=== PATIENT | female | born 1950 | race Caucasian/White ===

== ENCOUNTER 2017-02-01 19:31 | Emergency (ER) | payer OTHER ==
[2017-02-01 20:30] VITALS: BP 145/101
--- NOTE | 2017-02-02 00:23 | EDM.PDOC ---
ED HPI GENERAL MEDICAL PROBLEM - General Chief Complaint: Lower Extremity Injury/Pain Stated Complaint: HAD KNEE REPLACEMENT AND HAS BAD PAIN AND DRAINAGE Time Seen by Provider: 02/01/17 20:13 Source of Information: Reports: Patient History Limitations: Reports: No Limitations - History of Present Illness INITIAL COMMENTS - FREE TEXT/NARRATIVE: History of present illness: [66-year-old female presenting with a history of having total left knee 1 week ago in [place]. She is presenting with her daughter with concerns of some erythema that is developed around the incision. She feels like the knee is got a little more swollen and is more tender as well. Daughter states she went to physical therapy on Monday and the daughter felt that they pushed her little bit hard and that perhaps some of the pain and swelling and discomfort she is having is due to that. Her daughter states that she does have a history of lymphedema and having trouble with cellulitis off and on for most of her life.] Review of systems: As per history of present illness and below otherwise all systems reviewed and negative. Past medical history: As per history of present illness and as reviewed below otherwise noncontributory. Surgical history: As per history of present illness and as reviewed below otherwise noncontributory. Social history: No reported history of drug or alcohol abuse. Family history: As per history of present illness and as reviewed below otherwise noncontributory. Physical exam: HEENT: Atraumatic, normocephalic, pupils reactive, negative for conjunctival pallor or scleral icterus, mucous membranes moist, throat clear, neck supple, nontender, trachea midline. Lungs: Clear to auscultation, breath sounds equal bilaterally, chest nontender. Heart: S1S2, regular, negative for clicks, rubs, or JVD. Abdomen: Soft, nondistended, nontender. Negative for masses or hepatosplenomegaly. Negative for costovertebral tenderness. Pelvis: Stable nontender. Genitourinary: Deferred. Rectal: Deferred. Extremities: Examination of the left knee does show that it is swollen but this is superimposed on her chronic lymphedema so some of the swelling it is just from the lymphedema but some of it is postsurgical. She does have some erythema about the incision superiorly is not dense there is no purulent discharge is warm to touch but not hot. She is able to lift that leg off the gurney and she is able to bend her knee to 90 and stop at that point due to pain. She is states that the pain is a bit more intense in doing this maneuver than it was a few days ago. Neuro: Awake, alert, oriented. Exam nonfocal. Diagnostics: [CBC complete metabolic panels CRP and sedimentation rate were done. Her white count is normal her hemoglobin is 10.7 I believe. Sedimentation rate is 32 and her CRP is slightly elevated.] Therapeutics: [] Impression: [Status post total knee on the left with localized cellulitis. I do not believe at this point that this is a deep infection.] Plan: [Or starting on Keflex 500 mg 4 times a day for 10 days. We are providing her with a copy of all her lab work and advising them to call Dr. Travis's office tomorrow and at least speak to his nurse and perhaps the lab work to be faxed to him for his review. She does have a follow-up appointment on the but perhaps they will want to see her sooner given the new concerned that has been raised here tonight. But once again I don't think at this point that this is a deep infection and that it is localized in that hopefully will respond to Keflex.] Definitive disposition and diagnosis as appropriate pending reevaluation and review of above. Left Knee Pain Score (Numeric/FACES): 7 - Related Data Allergies Allergy/AdvReac Type Severity Reaction Status Date / Time triamcinolone [From Kenalog] Allergy Rash Verified 02/01/17 20:52 Home Meds: Home Meds Acetaminophen/Caffeine [Excedrin Tension Headache] 2 tab PO BID PRN 07/06/14 [ History] Armodafinil [Nuvigil] 125 mg PO BID 07/06/14 [History] Calcium Carbonate [Calcium] 500 mg PO DAILY 07/06/14 [History] Cyanocobalamin (Vitamin B-12) [Vitamin B-12] 1 tab PO DAILY 07/06/14 [History] Furosemide [Lasix] 20 mg PO DAILY 07/06/14 [History] Lutein/Minerals/Vit A,C & E [Ocuvite] 1 tab PO DAILY 07/06/14 [History] Sertraline [Zoloft] 50 mg PO BEDTIME 07/06/14 [History] atoMOXetine HCl [Strattera] 60 mg PO DAILY 07/06/14 [History] Past Medical History HEENT History: Reports: Impaired Vision, Sinusitis Cardiovascular History: Reports: Hypertension Other Cardiovascular History: Lymph edema Respiratory History: Reports: Sleep Apnea Other Respiratory History: Recent pneumonia @ nodules l lung 3 and 4 ml Genitourinary History: Reports: Urinary Incontinence, Other (See Below) Other Genitourinary History: occ uti [employer] History: Reports: , Other (See Below) Other OB/BYN History: Partial hysterectomy Neurological History: Reports: TIA Psychiatric History: Reports: Depression Oncologic (Cancer) History: Reports: Basal Cell Carcinoma Dermatologic History: Reports: Other (See Below) Other Dermatologic History: dry skin - Infectious Disease History Infectious Disease History: Reports: Chicken Pox, Measles, Mumps, Rubella, Shingles - Past Surgical History Cardiovascular Surgical History: Reports: Varicose GI Surgical History: Reports: Bariatric Procedure, Cholecystectomy, Hernia Repair/Other Musculoskeletal Surgical History: Reports: Knee Replacement Social & Family History - Tobacco Use Smoking Status *Q: Never Smoker Second Hand Smoke Exposure: No - Caffeine Use Caffeine Use: Reports: Coffee, Soda - Alcohol Use Days Per Week of Alcohol Use: 0 - Recreational Drug Use Recreational Drug Use: No Review of Systems - Review of Systems Review Of Systems: ROS reveals no pertinent complaints other than HPI. ED EXAM, GENERAL - Physical Exam Exam: See Below Course - Vital Signs Last Recorded V/S: Last Vital Signs Temp 36.1 C 02/01/17 20:29 Pulse 78 02/01/17 20:29 Resp 18 02/01/17 20:29 BP 145/101 H 02/01/17 20:29 Pulse Ox 98 02/01/17 20:29 - Orders/Labs/Meds Labs: Laboratory Tests 02/01/17 02/01/17 Range/Units 22:40 22:40 WBC 6.5 (4.5-11.0) K/uL RBC 3.86 (3.30-5.50) M/uL Hgb 10.6 L D (12.0-15.0) g/dL Hct 34.0 L (36.0-48.0) % MCV 88 (80-98) fL MCH 28 (27-31) pg MCHC 31 L (32-36) % Plt Count 416 H (150-400) K/uL Neut % (Auto) 66 (36-66) % Lymph % (Auto) 17 L (24-44) % Tripp % (Auto) 11 H (2-6) % Eos % (Auto) 5 H (2-4) % Baso % (Auto) 2 H (0-1) % ESR 32 H (0-25) mm/hr Sodium 143 (140-148) mmol/L Potassium 3.4 L (3.6-5.2) mmol/L Chloride 105 (100-108) mmol/L Carbon Dioxide 32 (21-32) mmol/L Anion Gap 9.4 (5.0-14.0) mmol/L BUN 16 (7-18) mg/dL Creatinine 0.8 (0.6-1.0) mg/dL Est Cr Clr Drug Dosing 54.71 mL/min Estimated GFR (MDRD) > 60 (>60) Glucose 95 (74-106) mg/dL Calcium 8.5 (8.5-10.1) mg/dL Total Bilirubin 0.3 (0.2-1.0) mg/dL AST 16 (15-37) U/L ALT 15 (12-78) U/L Alkaline Phosphatase 100 (46-116) U/L C-Reactive Protein 1.63 H (0.0-0.3) mg/dL Total Protein 6.6 (6.4-8.2) g/dL Albumin 2.8 L (3.4-5.0) g/dL Globulin 3.8 H (2.3-3.5) g/dL Albumin/Globulin Ratio 0.7 L (1.2-2.2) Departure - Departure Time of Disposition: 00:23 Disposition: Home, Self-Care 01 Condition: Good Clinical Impression: Cellulitis Qualifiers: Site of cellulitis: extremity Site of cellulitis of extremity: lower extremity Laterality: left Qualified Code(s): L03.116 - Cellulitis of left lower limb - Discharge Information Forms: ED Department Discharge Additional Instructions: As we discussed I would advise that you call Dr. Shultz's office tomorrow and talk to his nurse. Explained to her that you in the ER and that the doctor you saw thought he had a localized cellulitis and that you do not have a deep infection of your new total knee. Let them know that we started you on Keflex and if they want to see you sooner than the 25th they can let you know at that time.
== END 2017-02-02 00:40 | disposition home or self-care (01) ==
LOC: JP.ED 19:31
DX: L03.116 Cellulitis of left lower limb (principal); I10 Essential (primary) hypertension; F32.9 Major depressive disorder, single episode, unspecified; Z90.710 Acquired absence of both cervix and uterus; Z86.73 Personal history of transient ischemic attack (TIA), and cerebral infarction without residual deficits; Z90.49 Acquired absence of other specified parts of digestive tract; Z98.890 Other specified postprocedural states; Z96.651 Presence of right artificial knee joint; Z98.84 Bariatric surgery status; Z96.652 Presence of left artificial knee joint; Z79.899 Other long term (current) drug therapy; Z88.8 Allergy status to other drugs, medicaments and biological substances; Z85.828 Personal history of other malignant neoplasm of skin
CPT/HCPCS: 36415; 80053; 85025; 85651; 86140; 99284